=== PATIENT | male | born 1935 | race Caucasian/White ===

== ENCOUNTER → 2016-08-10 | Outpatient (CLI) | payer BC ==
[~2016-08-10] MED LIST: AMOX500C3 PO; ASPEC81 PO; BIMA0.01 OPB; BRIN1SUS OPB; CARBGEL OPB; DIPH1TAB98 PO; DOXY50CA PO; FEXO1TAB49 PO; GABA-112 PO; LISI-461 PO; MOME6000 NAE; OXYC-57 PO; POLY1POW2 PO; [UNRECOGNIZED DRUG - CODE] TOP; [UNRECOGNIZED DRUG - CODE] TOP
[2016-08-10 17:07] LABS: BASO % 0.4 %; BASO ABS # 0.02 K/uL (0-0.2); COMPLETE YES; EOS % 2.5 %; HEMATOCRIT 44.2 % (42-52); IG% 0.2 %; LYMPH % 13.4 %; LYMPH ABS # 0.76 K/uL (1.2-3.4); MEAN CELL VOLUME 88.6 fL (80-100); MEAN CORPUSCULAR HEMOGLOBIN 29.5 pg (25-34); MEAN CORPUSCULAR HGB CONC 33.3 g/dl (32-36); MEAN PLATELET VOLUME 12.7 fL (7.4-10.4); MONO % 7.9 %; NEUT % 75.6 %; PLATELET COUNT 210 K/uL (130-400); RED BLOOD COUNT 4.99 M/uL (4.7-6.1); WHITE BLOOD COUNT 5.68 K/uL (4.8-10.8)
[2016-08-10 17:16] LABS: ALT/SGPT 32 U/L (12-78); AST/SGOT 32 U/L (15-37); BLOOD UREA NITROGEN 21 mg/dl (7-18); BUN/CREATININE RATIO 19.3 (10-20); CARBON DIOXIDE 28 mmol/L (21-32); CHLORIDE 108 mmol/L (98-107); GLUCOSE 103 mg/dl (70-99); POTASSIUM 4.2 mmol/L (3.5-5.1); SODIUM 142 mmol/L (136-145)
[2016-08-10 17:26] LABS: ALB/GLOB RATIO 1.3 (0.9-2); ALKALINE PHOSPHATASE 93 U/L (45-117); FERRITIN 170.5 ng/ml (8.0-388.0); PROSTATE SPECIFIC ANTIGEN < 0.010 ng/ml (0.000-4.000)
--- NOTE | 2016-08-17 06:40 | CODING QUERY MEDICAL NECESSITY ---
CQSUPPORTING DIAGNOSIS NEEDED A supporting diagnosis is required for the test/procedure performed on this patient in order for us to be reimbursed by the patient's insurance. Please provide a supporting diagnosis for the following test/procedure listed below next to the test name along with your signature. *If there is no additional diagnosis for this patient that would support the following test/procedure please document that below next to the test/procedure. Test(s)/Procedure(s) that require a supporting diagnosis: DOS 08/10/16 VITAMIN D TEST PROSTATE SPECIFIC (PSA) TEST QUERY RETURNED WITH DIAGNOSIS FOR PSA TEST STILL NEED DIAGNOSIS FOR VITAMIN D TEST THANK YOU Provider Signature: Date: Thank you Dulce Maria Garcia Health Information Management Once completed, please kindly fax back to [phone] For questions please call [phone]
== END ==
LOC: C.LABBC 14:50
PROVIDERS: ATTEND Internal Medicine Geriatric Medicine
DX: Z86.79 Personal history of other diseases of the circulatory system (principal); M88.9 Osteitis deformans of unspecified bone; I49.5 Sick sinus syndrome; S32.000A Wedge compression fracture of unspecified lumbar vertebra, initial encounter for closed fracture; G47.61 Periodic limb movement disorder; I10 Essential (primary) hypertension; Z12.5 Encounter for screening for malignant neoplasm of prostate

== ENCOUNTER → 2016-08-28 | Outpatient (CLI) | payer BC ==
--- NOTE | 2016-08-28 12:26 | DIAGNOSTIC IMAGING REPORT ---
KUB CLINICAL HISTORY: Intermittent diarrhea. FINDINGS: 2 AP supine abdominal radiographs are correlated with radiographs of the lumbar spine dated 01/15/2007. There is a nonobstructed abdominal bowel gas pattern noting moderate colonic fecal retention. Numerous surgical clips are seen in the pelvis. No abnormal abdominal calcifications are identified. The Skeletal structures are osteopenic. There is moderate lumbosacral spondylosis and scoliosis. The heart is enlarged and pacemaker leads are observed. The lung bases are clear as imaged. IMPRESSION: Nonobstructed abdominal bowel gas pattern noting moderate colonic fecal retention. Electronically signed by: Serjio Kwok M.D. 08/28/2016 12:25 PM Dictated Date/Time: 08/28/2016 12:24 PM
== END | disposition home or self-care (01) ==
LOC: C.RAD1850 12:07
PROVIDERS: ATTEND Registered Nurse
DX: R19.7 Diarrhea, unspecified (principal); K59.00 Constipation, unspecified

== ENCOUNTER → 2016-09-03 | Outpatient (CLI) | payer BC ==
--- NOTE | 2016-09-03 11:18 | DIAGNOSTIC IMAGING REPORT ---
CAROTID ARTERY ULTRASOUND CLINICAL HISTORY: Bilateral pulsatile tinnitus. COMPARISON STUDY: None. TECHNIQUE: Real-time, grayscale, and color Doppler sonography of the carotid and vertebral arteries was performed. Images were viewed in the transverse and longitudinal planes. FINDINGS: There is mild to moderate atherosclerotic plaque. Velocity measurements are listed below. COMMON CAROTID PEAK SYSTOLIC VELOCITY (CM/S): RIGHT 54 LEFT 53 ICA PEAK SYSTOLIC VELOCITY (CM/S): RIGHT 58 LEFT 51 The systolic ratios between the internal to common carotid arteries were normal. Antegrade flow is seen in the vertebral arteries. The external carotid arteries are patent. Blood pressure in the right arm measured 119/72. Blood pressure in the left arm measured 117/77. IMPRESSION: No evidence of a hemodynamically significant stenosis. Electronically signed by: Carlos Potter M.D. 09/03/2016 11:17 AM Dictated Date/Time: 09/03/2016 11:16 AM
--- NOTE | 2016-09-07 10:34 | CODING QUERY MEDICAL NECESSITY ---
SUPPORTING DIAGNOSIS NEEDED Camilo PA, A supporting diagnosis is required for the test/procedure performed on this patient in order for us to be reimbursed by the patient's insurance. Please provide a supporting diagnosis for the following test/procedure listed below next to the test name along with your signature. *If there is no additional diagnosis for this patient that would support the following test/procedure please document that below next to the test/procedure. Test(s)/Procedure(s) that require a supporting diagnosis: * ([id number]) (CAROTID DOP) DUPLEX NECK ARTER DIAGNOSIS: DATE OF SERVICE: 09/03/16 Provider Signature: Date: Thank you Hernan Mobley Health Information Management Once completed, please kindly fax back to [phone] For questions please call [phone]
== END | disposition home or self-care (01) ==
LOC: C.ULTRBC 09:11
PROVIDERS: ATTEND Physician Assistant Medical
DX: H93.A9 Pulsatile tinnitus, unspecified ear (principal); I65.29 Occlusion and stenosis of unspecified carotid artery; R42 Dizziness and giddiness

== ENCOUNTER 2016-09-11 17:32 | Emergency (ER) | payer BC ==
[~2016-09-11] VITALS: Ht 176.5 cm; Wt 80.1 kg
[~2016-09-11 17:32] MED LIST changes: -DOXY50CA PO; -GABA-112 PO; -OXYC-57 PO; -POLY1POW2 PO
[2016-09-11 17:33] VITALS: Ht 176.5 cm; Wt 80.1 kg
[2016-09-11] MEDS ORDERED: SODIUM CHLORIDE 0.9% 1000ML 1,000 ML IV STA (18:06)
--- NOTE | 2016-09-11 18:12 | EMERGENCY ROOM VISIT NOTE ---
History Report prepared by Gary: Reed Petit Under the Supervision of: Dr. Matty Bates D.O. First contact with patient: 17:39 Chief Complaint: DIZZY Stated Complaint: DIZZY AND LIGHTHEADED History of Present Illness The patient is an 81 year old male who presents to the Emergency Room with complaints of worsening dizziness and lightheadedness that the patient began to experience one year ago. The patient states that over the past year he has had multiple episodes where his lightheadedness has caused him to fall to the ground. These spells commonly occur when the patient is standing or when he exerts himself He has never experienced these episodes while sitting or lying down. He claims that the episodes commonly last 15 minutes before resolving spontaneously, but today his symptoms will not subside. His lightheadedness is slightly improved by laying down, but not as much as they usually are. He is also experiencing some tingling in his extremities and complains of feeling very flushed. The patient notes having a "pressure" feeling in his head, but is adamant that it is not a headache. The patient is currently experiencing the "pressure" in his head. 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 He has never had a heart catheterization performed. Source of History: patient Onset: One year ago Position: head Quality: other (Dizziness/light headedness ) Timing: worsening Modifying Factors (Relieving): other (Laying flat) Associated Symptoms: + numbness (Tingling in extremities), No headache ( Only head "pressure" ), No SOB Review of Systems See HPI for pertinent positives & negatives. A total of 10 systems reviewed and were otherwise negative. Past Medical & Surgical Medical Problems: (1) Heart disease (2) Hypertension (3) Melanoma Surgical Problems: (1) History of prostatectomy Heart disease Hypertension Family History Cancer Heart disease Lung disease Social History Smoking Status: Never Smoker Drug Use: none Marital Status: Housing Status: lives with significant other Occupation Status: retired Current/Historical Medications Scheduled Azelaic Acid (Azelex), 1 APPLN TOP DAILY Bimatoprost (Lumigan), 1 DROP OPB HS Brinzolamide Oph (Azopt Oph), 1 DROP OPB BID Carboxymethylcellulose-Hyprome (Genteal), 1 APPLN OPB HS Doxycycline Hyclate (Vibramycin), 50 MG PO DAILY Gabapentin (Neurontin), 100 MG PO HS Histamine Dihydrochloride (Top ([place]onegasque Dream Arthriti), 1 APPLN TOP UD Lisinopril (Zestril), 10 MG PO QAM Scheduled PRN Amoxicillin (Amoxil), 500 MG PO UD PRN for Pre Treat-Dental Work Polyethylene Glycol 3350 (Bulk (Polyethylene Glycol 3350), 17 GM PO DAILY PRN for Constipation Allergies Coded Allergies: No Known Allergies (Verified , 03/03/16) Physical Exam Vital Signs Date Time Temp Pulse Resp B/P (MAP) Pulse Ox O2 Delivery O2 Flow Rate FiO2 09/11/16 22:35 36.5 69 13 155/95 97 09/11/16 22:15 69 09/11/16 22:05 73 13 155/95 97 Room Air 09/11/16 21:32 09/11/16 21:05 68 20 09/11/16 21:05 69 18 166/98 95 Room Air 09/11/16 19:09 69 18 147/87 97 Room Air 09/11/16 18:42 70 145/84 76 158/90 102 129/97 09/11/16 18:14 91 09/11/16 17:33 36.5 82 17 145/86 95 Room Air Physical Exam GENERAL: Patient is awake, alert, and in no acute distress. Patient is resting comfortably and showing no signs of anxiety EYES: The conjunctivae are clear. The pupils are round and reactive. EARS, NOSE, MOUTH AND THROAT: The nose is without any evidence of any deformity. Mucous membranes are moist tongue is midline NECK: The neck is nontender and supple. RESPIRATORY: Normal respiratory effort is noted there is no evidence of wheezing rhonchi or rales CARDIOVASCULAR: There was ectopy noted to auscultation, no definite murmurs rubs or gallops normal S1 normal S2 GASTROINTESTINAL: The abdomen is soft. Bowel sounds are present in all quadrants. Abdomen is nontender MUSCULOSKELETAL/EXTREMITIES: There is no evidence of gross deformity full range of motion is noted in the hips and shoulders SKIN: There is no obvious evidence of any rash. There are no petechiae, pallor or cyanosis noted. NEUROLOGIC: Patient is awake alert and oriented x3 strength is symmetric in extremities. patellar reflexes are 2+ bilaterally. No drift appreciated. GCS of 15. Medical Decision & Procedures ER Provider Diagnostic Interpretation: Radiology results as stated below per my review and radiologist interpretation: CHEST ONE VIEW PORTABLE CLINICAL HISTORY: dizziness COMPARISON STUDY: 02/17/2016 FINDINGS: The heart is enlarged. There is a left subclavian dual-chamber central venous pacemaker present. There is no failure. There is no focal pulmonary consolidation. There are no pleural effusions. There are minor basilar atelectatic changes.[ IMPRESSION: No active disease in the chest. Electronically signed by: Fermín Burns M.D. 09/11/2016 6:21 PM Dictated Date/Time: 09/11/2016 6:[address] HEAD WITHOUT CONTRAST (CT) CLINICAL HISTORY: head pressure and dizziness COMPARISON STUDY: No previous studies for comparison. TECHNIQUE: Axial CT of the brain is performed from the vertex to the skull base. IV contrast was not administered for this examination. CT DOSE: 687.98 mGy.cm FINDINGS: No intra or extra-axial mass lesions are visualized. There is no CT evidence of acute cortical infarction. There is no evidence of midline shift. There is no acute hemorrhage. No calvarial fractures are visualized. There are mild white matter hypodensities likely on a small vessel basis. There is no evidence of pathologic ventricular dilatation. There is no evidence of acute sinusitis IMPRESSION: No acute intracranial findings Electronically signed by: Fermín Burns M.D. 09/11/2016 6:57 PM Dictated Date/Time: 09/11/2016 6:56 PM Laboratory Results 09/11/16 18:25 Red Blood Count 4.86, Mean Corpuscular Volume 86.2, Mean Corpuscular Hemoglobin 29.4, Mean Corpuscular Hemoglobin Concent 34.1, Mean Platelet Volume 11.8, Neutrophils (%) (Auto) 69.0, Lymphocytes (%) (Auto) 18.3, Monocytes (%) (Auto) 9.1, Eosinophils (%) (Auto) 3.2, Basophils (%) (Auto) 0.2, Neutrophils # (Auto) 3.28, Lymphocytes # (Auto) 0.87, Monocytes # (Auto) 0.43, Eosinophils # (Auto) 0.15, Basophils # (Auto) 0.01 09/11/16 18:25 Test 09/11/16 18:25 09/11/16 18:35 White Blood Count 4.75 K/uL (4.8-10.8) Red Blood Count 4.86 M/uL (4.7-6.1) Hemoglobin 14.3 g/dL (14.0-18.0) Hematocrit 41.9 % (42-52) Mean Corpuscular Volume 86.2 fL (80-100) Mean Corpuscular Hemoglobin 29.4 pg (25-34) Mean Corpuscular Hemoglobin Concent 34.1 g/dl (32-36) Platelet Count 176 K/uL (130-400) Mean Platelet Volume 11.8 fL (7.4-10.4) Neutrophils (%) (Auto) 69.0 % Lymphocytes (%) (Auto) 18.3 % Monocytes (%) (Auto) 9.1 % Eosinophils (%) (Auto) 3.2 % Basophils (%) (Auto) 0.2 % Neutrophils # (Auto) 3.28 K/uL (1.4-6.5) Lymphocytes # (Auto) 0.87 K/uL (1.2-3.4) Monocytes # (Auto) 0.43 K/uL (0.11-0.59) Eosinophils # (Auto) 0.15 K/uL (0-0.5) Basophils # (Auto) 0.01 K/uL (0-0.2) RDW Standard Deviation 43.2 fL (36.4-46.3) RDW Coefficient of Variation 13.7 % (11.5-14.5) Immature Granulocyte % (Auto) 0.2 % Immature Granulocyte # (Auto) 0.01 K/uL (0.00-0.02) Prothrombin Time 10.2 SECONDS (9.0-12.0) Prothromb Time International Ratio 1.0 (0.9-1.1) Activated Partial Thromboplast Time 28.7 SECONDS (21.0-31.0) Partial Thromboplastin Ratio 1.1 Anion Gap 7.0 mmol/L (3-11) Est Creatinine Clear Calc Drug Dose 62.5 ml/min Estimated GFR () 90.0 Estimated GFR (Non- 77.7 BUN/Creatinine Ratio 18.4 (10-20) Calcium Level 8.6 mg/dl (8.5-10.1) Magnesium Level 2.2 mg/dl (1.8-2.4) Total Bilirubin 0.4 mg/dl (0.2-1) Direct Bilirubin 0.1 mg/dl (0-0.2) Aspartate Amino Transf (AST/SGOT) 24 U/L (15-37) Alanine Aminotransferase (ALT/SGPT) 26 U/L (12-78) Alkaline Phosphatase 93 U/L (45-117) Total Creatine Kinase 218 U/L (39-308) Creatine Kinase MB 5.9 ng/ml (0.5-3.6) Creatine Kinase MB Ratio 2.7 (0-3.0) Troponin I < 0.015 ng/ml (0-0.045) Total Protein 6.5 gm/dl (6.4-8.2) Albumin 3.7 gm/dl (3.4-5.0) Lipase 245 U/L (73-393) Thyroid Stimulating Hormone (TSH) 2.940 uIu/ml (0.300-4.500) Free Thyroxine 0.91 ng/dl (0.80-1.60) Lyme Disease IgG Antibody NEG (NEG) Lyme Disease IgM Antibody NEG (NEG) Urine Color YELLOW Urine Appearance CLEAR (CLEAR) Urine pH 5.0 (4.5-7.5) Urine Specific [place] 1.023 (1.000-1.030) Urine Protein NEG (NEG) Urine Glucose (UA) NEG (NEG) Urine Ketones NEG (NEG) Urine Occult Blood NEG (NEG) Urine Nitrite NEG (NEG) Urine Bilirubin NEG (NEG) Urine Urobilinogen NEG (NEG) Urine Leukocyte Esterase NEG (NEG) Laboratory results per my review. Medications Administered Medications (Trade) Dose Ordered Sig/[place] Route Start Time Stop Time Status Last Admin Dose Admin Sodium Chloride 1,000 ml @ 999 mls/hr Q1H1M STAT IV 09/11/16 18:06 09/11/16 19:06 DC 09/11/16 18:46 999 MLS/HR ECG Indication: weakness Rate (beats per minute): 72 Rhythm: other (Atrial paced rhythm) Findings: other ([place] beats noted with variable [place] interval. NO PVCs. LVH by voltage criteria) ED Course 1753: The patient was evaluated in room B11. A complete history and physical examination were performed. 180: Ordered Sodium Chloride 1000 mL @ 999 mL/hr IV. 8: Upon reevaluation, the patient is resting in bed. I discussed the results and treatment plan with the patient. He verbalized agreement of the treatment plan. The patient was discharged home. Medical Decision Differential diagnosis: Etiologies such as benign positional vertigo, dehydration, hypovolemia, anemia, tumor, infection, hypoglycemia, electrolyte abnormalities, cardiac sources, intracerebral event, toxicologic, neurologic, as well as others were entertained. Nursing notes reviewed. The patient is an 81-year-old male who presented to the emergency department for an evaluation of dizziness. The patient states that he's been having episodes of dizziness for quite some time but today the symptoms appear to be somewhat worsened. He describes more of a near syncope sensation. I do not feel that he is describing vertigo. The patient did not appear to have any abnormalities with his neurologic exam. His EKG did reveal a paced rhythm but he does have underlying venetie ira beats which showed variable [place] intervals. Looking back at his records he received a pacemaker for sick sinus syndrome. The patient was treated with IV fluids in the emergency department. I discussed patient's laboratory and radiographic studies with him and his family members. At this time I do feel it would be prudent for him to have an evaluation with his [employer] for evaluation of his pacemaker. He states that he did see his assembl[employer] handbags recently and there is no issues with his pacemaker at that time. He was encouraged to rest and avoid any strenuous. He was advised to return the emergency Department immediately if symptoms change worsen or the need arises. Impression Primary Impression: Dizziness Scribe Attestation The scribe's documentation has been prepared under my direction and personally reviewed by me in its entirety. I confirm that the note above accurately reflects all work, treatment, procedures, and medical decision making performed by me. Departure Information Dispostion Home / Self-Care Referrals Anival Hernandez M.D. (PCP) Forms HOME CARE DOCUMENTATION FORM, IMPORTANT VISIT INFORMATION Patient Instructions My [facility] Additional Instructions Follow-up with your [employer] as soon as possible for further evaluation. Rest and avoid any strenuous activity. Continue all medications as prescribed. Have your blood pressure recheck with your family doctor. Be sure to monitor your blood pressure and pulse rate especially when they have is episodes. Return to the emergency Department immediately if symptoms change worsen or the need arises.
--- NOTE | 2016-09-11 18:23 | DIAGNOSTIC IMAGING REPORT ---
CHEST ONE VIEW PORTABLE CLINICAL HISTORY: dizziness COMPARISON STUDY: 02/17/2016 FINDINGS: The heart is enlarged. There is a left subclavian dual-chamber central venous pacemaker present. There is no failure. There is no focal pulmonary consolidation. There are no pleural effusions. There are minor basilar atelectatic changes.[ IMPRESSION: No active disease in the chest. Electronically signed by: Fermín Burns M.D. 09/11/2016 6:21 PM Dictated Date/Time: 09/11/2016 6:21 PM
[2016-09-11 18:39] LABS: BASO % 0.2 %; BASO ABS # 0.01 K/uL (0-0.2); COMPLETE YES; EOS % 3.2 %; HEMATOCRIT 41.9 % (42-52); IG% 0.2 %; LYMPH % 18.3 %; LYMPH ABS # 0.87 K/uL (1.2-3.4); MEAN CELL VOLUME 86.2 fL (80-100); MEAN CORPUSCULAR HEMOGLOBIN 29.4 pg (25-34); MEAN CORPUSCULAR HGB CONC 34.1 g/dl (32-36); MEAN PLATELET VOLUME 11.8 fL (7.4-10.4); MONO % 9.1 %; PLATELET COUNT 176 K/uL (130-400); RED BLOOD COUNT 4.86 M/uL (4.7-6.1); WHITE BLOOD COUNT 4.75 K/uL (4.8-10.8)
[2016-09-11 18:55] LABS: PARTIAL THROMBOPLASTIN RATIO 1.1; PROTHROMBIN TIME (PATIENT) 10.2 SECONDS (9.0-12.0)
--- NOTE | 2016-09-11 18:59 | DIAGNOSTIC IMAGING REPORT ---
CT HEAD WITHOUT CONTRAST (CT) CLINICAL HISTORY: head pressure and dizziness COMPARISON STUDY: No previous studies for comparison. TECHNIQUE: Axial CT of the brain is performed from the vertex to the skull base. IV contrast was not administered for this examination. CT DOSE: 687.98 mGy.cm FINDINGS: No intra or extra-axial mass lesions are visualized. There is no CT evidence of acute cortical infarction. There is no evidence of midline shift. There is no acute hemorrhage. No calvarial fractures are visualized. There are mild white matter hypodensities likely on a small vessel basis. There is no evidence of pathologic ventricular dilatation. There is no evidence of acute sinusitis IMPRESSION: No acute intracranial findings Electronically signed by: Fermín Burns M.D. 09/11/2016 6:57 PM Dictated Date/Time: 09/11/2016 6:56 PM
[2016-09-11 19:00] LABS: ALT/SGPT 26 U/L (12-78); AST/SGOT 24 U/L (15-37); BLOOD UREA NITROGEN 17 mg/dl (7-18); BUN/CREATININE RATIO 18.4 (10-20); CALCIUM 8.6 mg/dl (8.5-10.1); CARBON DIOXIDE 27 mmol/L (21-32); CHLORIDE 111 mmol/L (98-107); CREATININE 0.91 mg/dl (0.60-1.40); GLUCOSE 97 mg/dl (70-99); MAGNESIUM 2.2 mg/dl (1.8-2.4); SODIUM 145 mmol/L (136-145)
[2016-09-11 19:08] LABS: ALKALINE PHOSPHATASE 93 U/L (45-117); CKMB/CK RATIO 2.7 (0-3.0)
[2016-09-11] MEDS ORDERED: GABA-112 PO (19:22)
[2016-09-11] MEDS ORDERED: POLY1POW2 PO (19:22)
[2016-09-11] MEDS ORDERED: DOXY50CA PO (19:22)
[2016-09-11 19:26] LABS: URINE APPEARANCE CLEAR (CLEAR); URINE BILIRUBIN NEG (NEG); URINE COLOR YELLOW; URINE NITRITE NEG (NEG); URINE SPECIFIC GRAVITY 1.023 (1.000-1.030); UROBILINOGEN NEG (NEG)
[2016-09-11 19:28] LABS: MANUAL MICROSCOPIC REQUIRED? NO; REVIEW REQ? NO
[2016-09-11 20:14] LABS: LYME DISEASE AB IGG NEG (NEG); LYME DISEASE AB IGM NEG (NEG)
[2016-09-11 22:35] VITALS: BP 155/95; PULSE 69; TEMP 36.5; O2SAT 97
== END 2016-09-11 22:35 | disposition home or self-care (01) ==
LOC: C.EDB 17:33
DX: R42 Dizziness and giddiness (principal); I51.9 Heart disease, unspecified; I10 Essential (primary) hypertension; Z85.820 Personal history of malignant melanoma of skin; Z82.49 Family history of ischemic heart disease and other diseases of the circulatory system; Z80.9 Family history of malignant neoplasm, unspecified; Z83.6 Family history of other diseases of the respiratory system; Z79.899 Other long term (current) drug therapy

== ENCOUNTER → 2017-05-05 | Outpatient (CLI) | payer BC ==
[~2017-05-05] MED LIST changes: -ASPEC81 PO; -DIPH1TAB98 PO; +DOXY50CA PO; -FEXO1TAB49 PO; +GABA-112 PO; -MOME6000 NAE; +POLY1POW2 PO
--- NOTE | 2017-05-05 15:23 | DIAGNOSTIC IMAGING REPORT ---
PELVIS 1 OR 2 VIEW ROUTINE CLINICAL HISTORY: M19.90 [id number] Paget's disease of the boneM41.9 scoliosis COMPARISON STUDY: No previous studies for comparison. FINDINGS: There are multiple surgical clips within the pelvis, likely secondary to a prior lymph node dissection. There are no acute fractures. The joint space of each hip appears well-preserved for age. There are no lytic or blastic lesions. IMPRESSION: Unremarkable bony pelvis for age Electronically signed by: Fermín Burns M.D. 05/05/2017 3:22 PM Dictated Date/Time: 05/05/2017 3:21 PM
--- NOTE | 2017-05-05 15:24 | DIAGNOSTIC IMAGING REPORT ---
SACROILIAC JOINTS 3 VIEWS CLINICAL HISTORY: Osteoarthritis. FINDINGS: 3 views of the sacrum and sacroiliac joints are obtained. No prior studies are available for comparison at the time of dictation. The skeletal structures are osteopenic. There is no radiographic evidence of fracture. Sclerotic degenerative change is present in the sacroiliac joints bilaterally. No bony erosion is seen. Lumbosacral spondylosis is partially imaged. Numerous surgical clips are present in the pelvis. IMPRESSION: Sclerotic degenerative change is noted in the sacroiliac joints bilaterally. Electronically signed by: Serjio Kwok M.D. 05/05/2017 3:22 PM Dictated Date/Time: 05/05/2017 3:21 PM
--- NOTE | 2017-05-05 15:25 | DIAGNOSTIC IMAGING REPORT ---
R KNEE 1 OR 2 VIEWS ROUTINE CLINICAL HISTORY: M19.90 [id number] Paget's disease of the boneM41.9 scoliosis COMPARISON: None. DISCUSSION: No acute fractures or dislocations are visualized. There is coarsening of the trabecular markings within the patella. The findings are consistent with Paget's disease. IMPRESSION: 1. No acute fractures 2. Paget's disease of the patella Electronically signed by: Fermín Burns M.D. 05/05/2017 3:24 PM Dictated Date/Time: 05/05/2017 3:22 PM
--- NOTE | 2017-05-05 15:27 | DIAGNOSTIC IMAGING REPORT ---
L HAND MIN 3 VIEWS ROUTINE CLINICAL HISTORY: M19.90 [id number] Paget's disease of the boneM41.9 scoliosis COMPARISON: None. DISCUSSION: No acute fractures or dislocations are visualized. There is soft tissue swelling most pronounced the level of the proximal distal interphalangeal joints. There is joint space narrowing and mild osteophyte formation. There are few periarticular calcifications present. There is no erosive disease. IMPRESSION: 1. No acute fractures 2. Mild to moderate degenerative changes at the level the proximal and distal interphalangeal joints Electronically signed by: Fermín Burns M.D. 05/05/2017 3:26 PM Dictated Date/Time: 05/05/2017 3:24 PM
--- NOTE | 2017-05-05 15:35 | DIAGNOSTIC IMAGING REPORT ---
R HAND MIN 3 VIEWS ROUTINE CLINICAL HISTORY: M19.90 [id number] Paget's disease of the boneM41.9 scoliosis COMPARISON: None. DISCUSSION: No acute fractures are visualized. There are mild osteoarthritic changes. There is no erosive disease. There is a small periarticular ossification of the level the distal interphalangeal joint of the index finger. There is minor soft tissue swelling at the level of the proximal and distal interphalangeal joints IMPRESSION: Mild degenerative change. No acute fractures. No evidence of erosive disease. Electronically signed by: Fermín Burns M.D. 05/05/2017 3:33 PM Dictated Date/Time: 05/05/2017 3:32 PM
[2017-05-05 15:42] LABS: BASO % 0.4 %; BASO ABS # 0.02 K/uL (0-0.2); EOS ABS # 0.11 K/uL (0-0.5); HEMATOCRIT 40.7 % (42-52); HEMOGLOBIN 14.3 g/dL (14.0-18.0); LYMPH % 15.3 %; LYMPH ABS # 0.86 K/uL (1.2-3.4); MEAN CELL VOLUME 85.9 fL (80-100); MEAN CORPUSCULAR HEMOGLOBIN 30.2 pg (25-34); MEAN CORPUSCULAR HGB CONC 35.1 g/dl (32-36); MEAN PLATELET VOLUME 12.2 fL (7.4-10.4); MONO % 7.3 %; MONO ABS # 0.41 K/uL (0.11-0.59); NEUT ABS # 4.21 K/uL (1.4-6.5); PLATELET COUNT 189 K/uL (130-400); RED CELL DISTRIBUTION WIDTH CV 13.9 % (11.5-14.5); RED CELL DISTRIBUTION WIDTH SD 43.5 fL (36.4-46.3); WHITE BLOOD COUNT 5.61 K/uL (4.8-10.8)
[2017-05-05 16:07] LABS: CREATININE 0.92 mg/dl (0.60-1.40)
[2017-05-05 16:13] LABS: ALBUMIN 3.7 gm/dl (3.4-5.0); ALKALINE PHOSPHATASE 95 U/L (45-117); ALT/SGPT 23 U/L (12-78); AST/SGOT 24 U/L (15-37); TOTAL PROTEIN 6.8 gm/dl (6.4-8.2); TRANSFERRIN 255 mg/dl (200-360)
== END | disposition home or self-care (01) ==
LOC: C.RAD1850 14:34
PROVIDERS: ATTEND Internal Medicine Rheumatology
DX: M19.90 Unspecified osteoarthritis, unspecified site (principal); M79.641 Pain in right hand; M79.642 Pain in left hand; M88.9 Osteitis deformans of unspecified bone; M41.9 Scoliosis, unspecified; M19.042 Primary osteoarthritis, left hand

== ENCOUNTER 2021-12-06 07:34 | Observation (INO) ==
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
[2021-12-06 08:44] LABS: Basophils # (auto) 0.02 K/uL (0-0.2); Basophils % (auto) 0.4 %; Eosinophils # (auto) 0.19 K/uL (0-0.50); Eosinophils % (auto) 4.1 %; Hematocrit (blood only) 43.7 % (40.1-51.0); Hemoglobin 14.4 g/dl (14.0-18.0); Immature Granulocytes # (auto) 0.01 K/uL (0.00-0.02); Immature Granulocytes % (auto) 0.2 %; Lymphocytes # (auto) 1.08 K/uL (1.2-3.4); Lymphocytes % (auto) 23.2 %; Mean Corpuscular Volume 87.9 fL (80.0-100.0); Mean Platelet Volume 11.6 fL (9.4-12.4); Monocytes # (auto) 0.44 K/uL (0.24-0.82); Monocytes % (auto) 9.5 %; Neutrophils # (auto) 2.91 K/uL (1.4-6.5); Neutrophils % (auto) 62.6 %; Platelet Count 186 K/uL (130-400); RDW Coefficient of Variation 14.3 % (11.5-14.5); RDW Standard Deviation 45.9 fL (36.4-46.3); Red Blood Count 4.97 M/uL (4.63-6.08); White Blood Count 4.65 K/ul (4.8-10.8)
[2021-12-06 09:09] LABS: Troponin I High Sensitivity 9.5 pg/ml (0-20)
[2021-12-06 09:11] LABS: Albumin Globulin Ratio 1.7 (0.9-2); Albumin Level 4.3 gm/dl (3.4-5.0); BUN Creatinine Ratio 25.6 (10-20); Calcium 9.6 mg/dl (8.5-10.1); Creatinine Clr Calc Pharmacy 58.6 ml/min; Est GFR (African American) 88.1 ml/min; Globulin 2.6 gm/dl (2.5-4.0); Magnesium 1.9 mg/dl (1.7-2.4); Potassium 4.2 mmol/L (3.5-5.1); Total Protein 6.9 gm/dl (6.0-8.3)
[2021-12-06] MEDS ORDERED: OPTIRAY 300 500mL IV ONE (09:28)
[2021-12-06 09:33] LABS: INR 1.1 (0.9-1.1); Partial Thromboplastin Ratio 1.1; Partial Thromboplastin Time 29.7 Seconds (21.0-31.0); Prothrombin Time 11.2 Seconds (9.0-12.0)
--- NOTE | 2021-12-06 10:08 | CT Scan Report ---
HEAD CT NONCONTRAST CT DOSE: HISTORY: Dizziness. Confusion. Stroke Like Symptoms TECHNIQUE: Multiaxial CT images of the head were performed without the use of intravenous contrast. A utomated exposure control was utilized for this study. A dose lowering technique was utilized adheri ng to the principles of ALARA. Comparison: Head CT 09/11/2016. Findings: The paranasal sinuses and mastoid air cells are clear. The calvarium and skull base are int act. There is no mass, hematoma, midline shift, acute infarct. White matter hypodensity is nonspecifi c but suggestive of microvascular ischemic change. The ventricles and sulci demonstrate mild age-rela kate involutional changes. Impression: No acute intracranial abnormality. Atrophy and microvascular ischemic changes. ACT 112: Negative or not required by law. Electronically signed by: Indra Munoz M.D. 12/06/2021 10:06 AM
--- NOTE | 2021-12-06 10:18 | CT Scan Report ---
HEAD & NECK CTA HISTORY: Dizziness. Confusion. Stroke Like Symptoms TECHNIQUE: Multiaxial CT images of the head were performed the intravenous administration of contrast to evaluate the major cerebral vessels. Multiaxial CT images of the neck were also performed followi ng the intravenous administration of contrast to evaluate the major cervical vessels. Maximum intensi ty projection images were also obtained. A dose lowering technique was utilized adhering to the princ iplsol of GRACIELA. COMPARISON: None. FINDINGS: There is no mass, hematoma, midline shift, or acute infarct. Visualized intracranial internal carotid arteries, distal vertebral arteries, and basilar artery are widely patent. There is no significant s tenosis, occlusion, or aneurysm seen within the bilateral ACAs, MCAs, or mutual fund manager. Major dural venous sin uses are patent. The visualized aortic arch appears patent. There is 30% focal stenosis within the proximal left subc lavian artery. Mild narrowing within the proximal to mid vertebral arteries due to extrinsic compress ion from the facet hypertrophy. No high-grade vertebral artery stenosis or dissection identified. Mil d right and moderate left carotid bifurcation calcification without significant stenosis or occlusion within the common or internal carotid arteries. Tiny linear focal filling defect seen within the bra chiocephalic artery best seen on image 12-28. This measures between 1 and 2 mm. This could be artifac t, a small focus of atherosclerotic plaque, or possibly a tiny focal dissection. This is of doubtful clinical significance given the small size. A left-sided pacemaker is partially visualized. IMPRESSION: 1. No significant stenosis, occlusion, or aneurysm within the [place]. 2. No significant stenosis, occlusion, or dissection identified within the carotid or vertebral arter ies. 3. Tiny linear filling defect seen within the brachiocephalic artery which could be artifact, a small focus of atherosclerotic plaque, or possibly a tiny focal dissection. This is of doubtful clinical s ignificance given the small size. ACT 112: Negative or not required by law. Electronically signed by: Indra Munoz M.D. 12/06/2021 10:15 AM
--- NOTE | 2021-12-06 10:18 | CT Scan Report ---
HEAD & NECK CTA HISTORY: Dizziness. Confusion. Stroke Like Symptoms TECHNIQUE: Multiaxial CT images of the head were performed the intravenous administration of contrast to evaluate the major cerebral vessels. Multiaxial CT images of the neck were also performed followi ng the intravenous administration of contrast to evaluate the major cervical vessels. Maximum intensi ty projection images were also obtained. A dose lowering technique was utilized adhering to the princ iplsol of GRACIELA. COMPARISON: None. FINDINGS: There is no mass, hematoma, midline shift, or acute infarct. Visualized intracranial internal carotid arteries, distal vertebral arteries, and basilar artery are widely patent. There is no significant s tenosis, occlusion, or aneurysm seen within the bilateral ACAs, MCAs, or napper fixer. Major dural venous sin uses are patent. The visualized aortic arch appears patent. There is 30% focal stenosis within the proximal left subc lavian artery. Mild narrowing within the proximal to mid vertebral arteries due to extrinsic compress ion from the facet hypertrophy. No high-grade vertebral artery stenosis or dissection identified. Mil d right and moderate left carotid bifurcation calcification without significant stenosis or occlusion within the common or internal carotid arteries. Tiny linear focal filling defect seen within the bra chiocephalic artery best seen on image 12-28. This measures between 1 and 2 mm. This could be artifac t, a small focus of atherosclerotic plaque, or possibly a tiny focal dissection. This is of doubtful clinical significance given the small size. A left-sided pacemaker is partially visualized. IMPRESSION: 1. No significant stenosis, occlusion, or aneurysm within the [place]. 2. No significant stenosis, occlusion, or dissection identified within the carotid or vertebral arter ies. 3. Tiny linear filling defect seen within the brachiocephalic artery which could be artifact, a small focus of atherosclerotic plaque, or possibly a tiny focal dissection. This is of doubtful clinical s ignificance given the small size. ACT 112: Negative or not required by law. Electronically signed by: Indra Munoz M.D. 12/06/2021 10:15 AM
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
--- NOTE | 2021-12-06 13:06 | Electrocardiogram Report ---
Test Reason : Blood Pressure : / mmHG Vent. Rate : 068 BPM Atrial Rate : 288 BPM P-R Int : 000 ms QRS Dur : 092 ms QT Int : 400 ms P-R-T Axes : 000 -48 -33 degrees QTc Int : 425 ms Atrial fibrillation with occasional ventricular-paced complexes fusion beats Left axis deviation Incomplete right bundle branch block Nonspecific ST abnormality Abnormal ECG When compared with ECG of 15-SEP-2021 07:35, Electronic ventricular pacemaker has replaced Electronic atrial pacemaker Confirmed by Melvin Smith ([id number]) on 12/06/2021 1:05:44 PM Referred By: REFERRED SELF Confirmed By:Galileo Smith
[2021-12-06] MEDS ORDERED: ACETAMINOPHEN 325 MG TAB PO PRN (14:56)
[2021-12-06] MEDS ORDERED: PHARMACIST DISCHARGE MED REC CONSULT PRN (14:56)
--- NOTE | 2021-12-06 17:58 | XCELERA ---
[id number]
[2021-12-06] MEDS: BRINZOLAMIDE (AZOPT) OPS 10 ML BTL OP SCH ×2 (18:08→21:05)
[2021-12-06] MEDS: ATORVASTATIN 40 MG TAB PO SCH (18:08)
[2021-12-06] MEDS ORDERED: BIMATOPROST 0.01% OP SOLN 2.5 ML BTL OP SCH (21:00)
[2021-12-06] MEDS: APIXABAN 5 MG TABLET PO SCH (21:04)
[2021-12-06] MEDS: BETAXOLOL HCL 0.5% OP SCH (21:05)
[2021-12-07 05:58] LABS: Basophils # (auto) 0.03 K/uL (0-0.2); Basophils % (auto) 0.6 %; Eosinophils # (auto) 0.24 K/uL (0-0.50); Eosinophils % (auto) 5.2 %; Hematocrit (blood only) 40.4 % (40.1-51.0); Hemoglobin 13.4 g/dl (14.0-18.0); Immature Granulocytes # (auto) 0.02 K/uL (0.00-0.02); Immature Granulocytes % (auto) 0.4 %; Lymphocytes # (auto) 1.17 K/uL (1.2-3.4); Lymphocytes % (auto) 25.2 %; Mean Corpuscular Hemoglobin 28.9 pg (25.0-34.0); Mean Corpuscular Hgb Conc 33.2 g/dL (32.0-36.0); Mean Corpuscular Volume 87.3 fL (80.0-100.0); Mean Platelet Volume 11.6 fL (9.4-12.4); Monocytes # (auto) 0.48 K/uL (0.24-0.82); Monocytes % (auto) 10.3 %; Neutrophils # (auto) 2.71 K/uL (1.4-6.5); Neutrophils % (auto) 58.3 %; Platelet Count 169 K/uL (130-400); RDW Coefficient of Variation 14.3 % (11.5-14.5); RDW Standard Deviation 46.1 fL (36.4-46.3); Red Blood Count 4.63 M/uL (4.63-6.08); White Blood Count 4.65 K/ul (4.8-10.8)
[2021-12-07 06:25] LABS: BUN Creatinine Ratio 25.2 (10-20); Chol HDL Ratio 3.2 (0-5); Creatinine Clr Calc Pharmacy 47.5 ml/min; Est GFR (African American) 68.3 ml/min; Potassium 3.9 mmol/L (3.5-5.1)
[2021-12-07] MEDS ORDERED: METOPROLOL SUCC 50MG EXT REL TAB PO SCH (09:00)
[2021-12-07] MEDS: APIXABAN 5 MG TABLET PO SCH (09:04)
[2021-12-07] MEDS: BETAXOLOL HCL 0.5% OP SCH (09:05)
[2021-12-07] MEDS: ATORVASTATIN 40 MG TAB PO SCH (09:05)
[2021-12-07] MEDS: BRINZOLAMIDE (AZOPT) OPS 10 ML BTL OP SCH (09:06)
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
[2021-12-07] MEDS ORDERED: STROKE PATIENT DISCHARGE STA (09:43)
--- NOTE | 2021-12-07 14:06 | Discharge Summary ---
Date of Service December 07, 2021 Admission HPI Per Admitting Provider 86-year-old male with PMH persistent atrial fibrillation anticoagulant on Eliquis, symptomatic bradycardia s/p pacemaker, HTN, osteoarthritis, GERD, melanoma, and other problems listed below who presents the ED for evaluation of dizziness and confusion. Patient reports he woke up around 4:15 AM to use the bathroom and when he went to use the sink, he reports that he had difficulty remembering how to turn on the water. Patient then walked back to bed and reports that he had some mild difficulty walking. He did not fall. He reports associated dizziness. Patient reports he then went back to bed however "did not feel himself" and decided to get up and get dressed and walk around his home. Patient reports he was able to get dressed without much difficulty. He was able to walk around his home and reports that he had mild difficulty getting around. He then called his daughter. Daughter states that she did not notice any speech abnormality. Patient was sitting in his recliner chair waiting for his daughter to arrive and reports that whenever he stood up he again started to feel dizzy. He describes a sensation of the room spinning around him. This lasted only a few moments. Patient's daughter then brought him to the ED for further evaluation. Patient reports left arm tingling however states he has had this in the past due to arthritis. Patient denies any other unilateral numbness, tingli ng, weakness. No lightheadedness or syncopal event. Denies chest pain, palpitations, shortness of breath. No abdominal pain, nausea, vomiting, diarrhea. Denies any other recent illnesses, fevers, chills. No urinary symptoms. Head CT, head and neck CTAs are unremarkable for acute findings. Labs unremarkable. Admission Exam Per Admitting Provider Constitutional: WD/WN, vitals as above Eyes: PERRL, conjunctivae normal, anicteric sclerae ENMT: external ear and nose normal, oropharynx normal Respiratory: normal respiratory effort, lungs clear to auscultation Cardiovascular: Rate/Rhythm: regular rate and + irregularly irregular Vessels: normal peripheral pulses Extremities: no edema Gastrointestinal (Abdomen): normal bowel sounds, soft, nontender, no hepatosplenomegaly Musculoskeletal: no cyanosis or clubbing, extremities motor strength 5/5 Skin: no rashes, warm and dry Neurologic: PERRL, EOMI, accommodation nl, no face palsy, no dysarthria Motor/Sensory: no pronator drift Coordination: normal [id number] test and normal [id number] test Psychiatric: A+Ox3, euthymic affect Principal Diagnosis 1) Dizziness 2) Persistent Atrial fibrillation 3) Hx of Tachy-syed syndrome s/p AICD 4) HTN Discharge Exam Constitutional: comfortable, AO X 3, pleasant, not in any distress Respiratory: normal respiratory effort, lungs clear to auscultation, no wheeze, rales, rhonchi. Normal insp/exp effort, no accessory muscle use Cardiovascular: irregular, no murmur, no edema Vessels: no JVD or carotid bruit Chest: normal inspection of chest Abdomen: normal bowel sounds, soft, nontender, no hepatosplenomegaly Musculoskeletal: no cyanosis or clubbing, extremities motor strength 5/5 Skin: no rashes, warm and dry normal turgor Neurologic: PERRLA Cranial nerve II to XII intact No pronator drift Strength and sensation intact throughout Finger-nose test intact Psychiatric: A+Ox3, euthymic affect Lymphatic: no cervical or axillary lymphadenopathy Discharge Data Allergies Allergy/AdvReac Type Severity Reaction Status Date / Time No Known Drug Allergies Allergy Verified 10/13/21 15:26 Consultations 12/06/21 11:17 ED Decision to Admit Stat 12/06/21 14:56 Consult Neurology Routine Ordered Studies 12/06/21 08:05 CT angio head w con Stat CT angio neck with con Stat CT head/brain wo con Stat Hospital Course (1) Stroke-like symptoms: (2) Symptomatic bradycardia: (3) Pacemaker: (4) Persistent atrial fibrillation: (5) Hypertension: (6) DVT prophylaxis: Plan Patient is a 86-year-old male with past medical history of A. 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 He denied any visual changes, headache, speech abnormality, chest pain or shortness of breath. On arrival to the ED, patient was afebrile, hypertensive and was saturating well in room air. EKG was remarkable for A. fib with controlled ventricular rate(patient is on metoprolol succinate 100 mg [address] daily[address] CT head was done which was unremarkable for any acute abnormality. CT angio head and neck did not reveal any high-grade stenosis. Patient was admitted to the telemetry floor and neurology was consulted. Neurology recommended that the symptoms were less likely due to stroke or TIA; likely secondary to intermittent vertiginous symptoms. Telemetry overnight showed A. fib with controlled ventricular rate with intermittent pacing. Patient was discharged back home with his daughter. No changes to his medication regimen was made. Total Time Total Time Spent Total Time Spent (In Minutes): 35 Total Time Includes: Examination of the Patient, Discharge Planning, Medication Reconciliation, Communication With Other Providers and Other Discharge Plan Discharge Items Patient Disposition: Home - Self-Care Reason For Visit: STROKE LIKE SYMPTOMS Discharge Diagnosis: (1) Dizziness: (2) Paroxysmal atrial fibrillation: (3) Symptomatic bradycardia: (4) Hypertension: (5) Pacemaker: Activity: Resume your previous activity Non-emergency contact: Primary Care Provider Call non-emergency contact if: you have any medication questions Follow-up/Referrals: Marcia Gutierrez DO [Primary Care Provider] - Diet: Regular Addtl Attending Provider Instructions: You were admitted to the hospital for concern for dizziness. Your evaluated by neurology service. The symptoms are most likely related to intermittent vertiginous symptoms. Please continue to take your medication as prescribed previously. Continue to take your blood thinner. No medication changes has been done. We will have neurology follow-up as outpatient. Please follow-up with her primary care doctor as needed. Pending Studies at Discharge: No Stand-Alone Forms: My [facility], Smoking Cessation Medications and DC Order Prescriptions: Continued ipratropium bromide 0.03 % spray,non-aerosol 2 spray INTNAS BID Qty: 60 3RF apixaban 5 mg tablet 5 mg PO BID Qty: 180 3RF lisinopril 20 mg tablet 20 mg PO DAILY Qty: 90 3RF psyllium husk [Metamucil] 0.52 gram capsule 0.52 gm PO DAILY loperamide [Imodium A-D] 1 mg/7.5 mL liquid 2 mg PO Q4H PRN (Reason: Diarrhea) amoxicillin 500 mg capsule 2,000 mg PO ONCE Label Comments: Take prior to dental work metoprolol succinate 100 mg tablet extended release 24 hr 100 mg PO DAILY Qty: 90 3RF Lumigan 0.01 % drops 1 drops OP QPM Azopt 1 % drops,suspension 1 drops OP TID betaxolol 0.5 % drops 1 drp ophthalmic (eye) BID mupirocin 2 % ointment 1 applic topical BID artificial tears(hypromellose) 0.3 % Drops 1 drp OPHTHALMIC (EYE) BID PRN (Reason: Dry Eyes) Discharge Orders: Discharge Order (Routine); Ordered 12/07/21 Ordered By: Mahamed Walker Admission Data Admit Date/Time: 12/06/21 11:25 Attending Provider: Mahamed Walker Admit Provider: Mahamed Walker Primary Care Provider: Marcia Gutierrez Other Providers: Mahamed Walker ; Tin Moore Other Interventions: Discharge Summary Assessment (RN) Last Done: 12/07/21 10:16
[2021-12-08 07:55] LABS: Estimated Average Glucose 120 mg/dl; Hemoglobin A1C 5.8 % (4.5-5.6)
== END 2021-12-07 11:02 | disposition home or self-care (01) ==
LOC: ED 07:34 → 4W 07:34